=== PATIENT | female | born 1950 | race Two or more races ===

== ENCOUNTER 2018-06-05 08:20 | Outpatient (CLI) | payer OTHER ==
[~2018-06-05] VITALS: Ht 177.8 cm; Wt 99.8 kg
== END 2018-06-05 08:40 | disposition home or self-care (01) ==
LOC: OFIC 805 08:20
DX: K21.9 Gastro-esophageal reflux disease without esophagitis (principal); R49.0 Dysphonia; R09.81 Nasal congestion; H61.23 Impacted cerumen, bilateral; J30.89 Other allergic rhinitis

== ENCOUNTER 2018-07-07 07:21 | Outpatient (CLI) | payer OTHER ==
[~2018-07-07] VITALS: Ht 152.4 cm; Wt 99.8 kg
== END 2018-07-07 07:40 | disposition home or self-care (01) ==
LOC: OFIC 805 07:21
DX: J30.89 Other allergic rhinitis (principal)

== ENCOUNTER 2018-11-18 09:34 | Outpatient (CLI) | payer OTHER | END 2018-11-18 09:43 | disposition home or self-care (01) | LOC: MRI 09:34 | DX: M54.2 Cervicalgia (principal); M54.12 Radiculopathy, cervical region | CPT/HCPCS: 72141 ==